=== PATIENT | female | born 1975 | race Two or more races ===

== ENCOUNTER → 2016-12-18 | Outpatient (CLI) | payer OTHER | LOC: FIMAGING 10:06 | PROVIDERS: ATTEND Internal Medicine | DX: R22.1 Localized swelling, mass and lump, neck (principal) ==

== ENCOUNTER 2018-02-14 12:07 | Emergency (ER) | payer OTHER ==
--- NOTE | 2018-02-14 12:37 | EDPHY ---
H & P Stated Complaint: abd pain Time Seen by Provider: 02/14/18 12:31 HPI/ROS: HPI: This is a 42-year-old female who presents with Chief Complaint: Abdominal pain Location: Epigastric and lower abdominal Quality: Pain Duration: 1 month Signs and Symptoms: no fever, no nausea, no vomiting, no hematemesis, no blood in stool, no abdominal bloating, + diarrhea, no back pain, no urinary symptoms, no vaginal bleeding/discharge, no indigestion, no chest pain, no shortness of breath Timing: Daily, constant Severity: Moderate Context: Medical history of irritable bowel syndrome, hysterectomy, acid reflux presents with complaints of 1 month history of epigastric and lower abdominal pain. Described as sharp and burning. Nonradiating in nature. Patient reports that she has been followed by Gastroenterology, Dr. Izaguirre, and is scheduled for an EGD and colonoscopy this Wednesday. Patient was able to eat breakfast today. She is taking vilchis to Pantoprazole daily. Denies any recent antibiotic use/foreign travel. Patient reports that she was unable to bear the pain this morning and could not go to work. Patient realizes that she needs to follow up with Gastroenterology she is asking to "just to give her something to get through." She reports that she has daily loose stools. Denies any hematemesis/blood in stool/urinary symptoms. Modifying Factors: Regular medication Comment: ROS: see HPI Constitutional: No fever, no chills, no weight loss Eyes: No blurred vision Respiratory: No shortness of breath, no cough Cardiovascular: No chest pain, no palpitations Gastrointestinal: No nausea, no vomiting, no diarrhea, no hematemesis, no blood in stool Genitourinary: No dysuria, no blood in urine Extremities: No myalgias, no edema Neurologic: No weakness, no numbness Skin: No rashes, no petechiae Hematologic: No bruising, no bleeding MEDICAL/SURGICAL/SOCIAL HISTORY: Medical/Surgical history: IBS, hysterectomy, migraines, Acid reflux, small hiatal hernia, lumbar degenerative disc disease Social history: Family history noncontributory. CONSTITUTIONAL: Extremely well-appearing middle-aged female, awake and alert, no obvious distress HEENT: Atraumatic and normocephalic, PERRL, EOMI. Nares patent; no rhinorrhea; no nasal mucosal edema. Tympanic membranes clear. Oropharynx clear, no exudate and moist pink mucosa. Airway patent. No lymphadenopathy. No meningismus. Cardiovascular: Normal S1/S2, regular rate, regular rhythm, without murmur rub or gallop. PULMONARY/CHEST: Symmetrical and nontender. Clear to auscultation bilaterally. Good air movement. No accessory muscle usage. ABDOMEN: Soft, nondistended, mild epigastric and lower reproducible abdominal tenderness, no rebound, no guarding, no peritoneal signs, no masses or organomegaly. No CVAT. EXTREMITIES: 2/2 pulses, strength 5/5, no deformities, no clubbing, no cyanosis or edema. NEUROLOGICAL: no focal neuro deficits. GCS 15. SKIN: Warm and dry, no erythema. no rash. Good capillary refill. Source: Patient Exam Limitations: No limitations - Personal History LMP (Females 10-55): Hysterectomy Current Tetanus/Diphtheria Vaccine: Yes Current Tetanus Diphtheria and Acellular Pertussis (TDAP): Yes Tetanus Vaccine Date: 2011 - Medical/Surgical History Hx Asthma: No Hx Chronic Respiratory Disease: No Hx Diabetes: No Hx Cardiac Disease: No Hx Renal Disease: No Hx Cirrhosis: No Hx Alcoholism: No Hx HIV/AIDS: No Hx Splenectomy or Spleen Trauma: No Other PMH: IBS, hysterectomy. migraines. Acid reflux - Social History Smoking Status: Former smoker Constitutional: Initial Vital Signs Temperature (C) 36.6 C 02/14/18 12:22 Heart Rate 72 02/14/18 12:22 Respiratory Rate 16 02/14/18 12:22 Blood Pressure 128/101 H 02/14/18 12:22 O2 Sat (%) 99 02/14/18 12:22 O2 Delivery Mode Room Air Allergies/Adverse Reactions: hydrocodone bitartrate [From Vicodin] Allergy (Intermediate, Verified 02/14/18 12:20) NAUSEA, VOMITING oxycodone HCl [From Percocet] Allergy (Intermediate, Verified 02/14/18 12:20) NAUSEA, VOMITING acetaminophen [From Tylenol] Allergy (Verified 02/14/18 12:20) Home Medications: Medication Instructions Recorded Prochlorperazine Edisylate 07/20/15 Dicyclomine [Bentyl 20 MG (*)] 20 mg PO QID PRN #12 tab 02/14/18 Ondansetron Odt [Zofran Odt 4 mg 4 mg PO Q4 PRN #12 tab 02/14/18 (*)] Pantoprazole Sodium 02/14/18 Medical Decision Making - Diagnostics Imaging Results: Imaging Impressions Abdomen CT 02/14/18 12:40 Impression: 1. Small hiatal hernia. 2. Status post cholecystectomy. 3. Multilevel degenerative disk and degenerative joint disease lumbar spine. Results called and discussed with Regi Greco PA-C, on February 14, 2018 at 1457. E:amm ED Course/Re-evaluation: Vital signs reviewed upon arrival and no systemic signs. Labs, IV fluids, IV medications, CT abdomen and pelvis scan ordered Given 1 L normal saline, IV Pepcid, IV promethazine 1336: Reviewed labs. No signs of leukocytosis/anemia/SCOTT/elevated LFTs/ electrolyte imbalance//pancreatitis. 1454: Called by radiologist who advised that CT abdomen and pelvis scan shows no acute intra-abdominal process. + cholecystectomy, small hiatal hernia, lumbar degenerative disc disease 1500: Reassessed patient. Abdomen soft and nontender. Work note provided per her request. Advised to keep follow-up appoint with Gastroenterology on Wednesday. Given prescriptions for Zofran and Bentyl. Patient urinated but did not give sample. Reports she has no urinary symptoms. Will not keep to obtain another urine sample. This patient was seen under the supervision of my secondary supervising physician. I evaluated care for this patient independently. Discussed this patient with Dr. Stewart who did not see the patient. Differential Diagnosis: Abdominal pain including but not limited to appendicitis, cholecystitis, gastritis and urinary tract infection. - Data Points Laboratory Results: Laboratory Results 02/14/18 12:46 02/14/18 12:46 02/14/18 02/14/18 02/14/18 12:46 12:46 12:46 WBC 7.19 10^3/uL 10^3/uL (3.80-9.50) RBC 4.74 10^6/uL 10^6/uL (4.18-5.33) Hgb 14.4 g/dL g/dL (12.6-16.3) Hct 42.1 % % (38.0-47.0) MCV 88.8 fL fL (81.5-99.8) MCH 30.4 pg pg (27.9-34.1) MCHC 34.2 g/dL g/dL (32.4-36.7) RDW 13.0 % % (11.5-15.2) Plt Count 319 10^3/uL 10^3/uL (150-400) MPV 9.9 fL fL (8.7-11.7) Neut % (Auto) 56.7 % % (39.3-74.2) Lymph % (Auto) 29.9 % % (15.0-45.0) [place] % (Auto) 9.2 % % (4.5-13.0) Eos % (Auto) 3.2 % % (0.6-7.6) Baso % (Auto) 0.7 % % (0.3-1.7) Nucleat RBC Rel Count 0.0 % % (0.0-0.2) Absolute Neuts (auto) 4.08 10^3/uL 10^3/uL (1.70-6.50) Absolute Lymphs (auto) 2.15 10^3/uL 10^3/uL (1.00-3.00) Absolute Monos (auto) 0.66 10^3/uL 10^3/uL (0.30-0.80) Absolute Eos (auto) 0.23 10^3/uL 10^3/uL (0.03-0.40) Absolute Basos (auto) 0.05 10^3/uL 10^3/uL (0.02-0.10) Absolute Nucleated RBC 0.00 10^3/uL 10^3/uL (0-0.01) Immature Gran % 0.3 % % (0.0-1.1) Immature Gran # 0.02 10^3/uL 10^3/uL (0.00-0.10) Sodium 137 mEq/L mEq/L (135-145) Potassium 4.2 mEq/L mEq/L (3.3-5.0) Chloride 105 mEq/L mEq/L (97-110) Carbon Dioxide 21 mEq/l L mEq/l (22-31) Anion Gap 11 mEq/L mEq/L (8-16) BUN 19 mg/dL mg/dL (7-23) Creatinine 0.8 mg/dL mg/dL (0.6-1.0) Estimated GFR > 60 Glucose 84 mg/dL mg/dL (70-100) Calcium 9.2 mg/dL mg/dL (8.5-10.4) Total Bilirubin 0.5 mg/dL mg/dL (0.1-1.4) Conjugated Bilirubin 0.4 mg/dL mg/dL (0.0-0.5) Unconjugated Bilirubin 0.1 mg/dL mg/dL (0.0-1.1) AST 17 IU/L IU/L (14-46) ALT 25 IU/L IU/L (9-52) Alkaline Phosphatase 52 IU/L IU/L (38-126) Total Protein 6.5 g/dL g/dL (6.3-8.2) Albumin 3.8 g/dL g/dL (3.5-5.0) Lipase 117 IU/L IU/L (23-300) Beta HCG, Qual NEGATIVE Medications Given: Discontinued Medications Sodium Chloride (Ns) 1,000 mls @ 0 mls/hr IV EDNOW ONE; Wide Open PRN Reason: Protocol Stop: 02/14/18 12:41 Last Admin: 02/14/18 12:59 Dose: 1,000 mls Famotidine/Sodium Chloride (Pepcid 20 Mg (Premix)) 50 mls @ 200 mls/hr IV EDNOW ONE Stop: 02/14/18 12:54 Last Admin: 02/14/18 12:59 Dose: 50 mls Promethazine HCl (Phenergan) 12.5 mg IVP EDNOW ONE Stop: 02/14/18 12:41 Last Admin: 02/14/18 13:00 Dose: 12.5 mg Departure - Departure Disposition: Home, Routine, Self-Care Clinical Impression: Chronic abdominal pain IBS (irritable bowel syndrome) Qualifiers: Irritable bowel syndrome type: with diarrhea Qualified Code(s): K58.0 - Irritable bowel syndrome with diarrhea Condition: Good Instructions: Irritable Bowel Syndrome (ED), Chronic Abdominal Pain (ED) Additional Instructions: Consume a minimum of 8-10 glasses of water or electrolyte fluid replacement drinks that include Gatorade, Powerade, Pedialyte. Eat a bland diet for the next 48 hours and then slowly advance as tolerated. Take Bentyl 1 tab every 6 hr as needed for irritable bowel. Keep follow-up appointment with Gastroenterology on Wednesday. Referrals: Dr iZna [Other] - As per Instructions (Please go to appointment this Wednesday. ) Stand Alone Forms: Work Excuse Prescriptions: Dicyclomine [Bentyl 20 MG (*)] 20 mg PO QID PRN #12 tab PRN Reason: Gi Distress Ondansetron Odt [Zofran Odt 4 mg (*)] 4 mg PO Q4 PRN #12 tab PRN Reason: Nausea/Vomiting, Use 1st
[2018-02-14] MEDS ORDERED: PROMETHAZINE HCL 25 MG/ML INJ IVP ONE (12:40)
[2018-02-14] MEDS ORDERED: NS 1,000 ML IV ONE (12:40)
[2018-02-14] MEDS ORDERED: FAMOTIDINE 20 MG/NACL 50 ML IV ONE (12:40)
[2018-02-14 12:55] LABS: PLATELET COUNT 319 10^3/uL (150-400)
[2018-02-14] MEDS ORDERED: IOPAMIDOL (ISOVUE-300) 100 ML BTL ONE (13:25)
[2018-02-14 15:22] VITALS: BP 106/75
== END 2018-02-14 15:24 | disposition home or self-care (01) ==
DX: K58.0 Irritable bowel syndrome with diarrhea (principal); G89.29 Other chronic pain; E86.9 Volume depletion, unspecified; Z87.891 Personal history of nicotine dependence
CPT/HCPCS: 96365; J2550; Q9967